=== PATIENT | male | born 1995 | race African-American/Black ===

== ENCOUNTER 2024-06-07 11:35 | Inpatient (IN) | payer MEDICAID ==
[~2024-06-07] VITALS: Ht 175.3 cm; Wt 73.5 kg
[2024-06-07] MEDS: LORazepam 2 MG/ML VIAL IM ONE (13:07)
[2024-06-07] MEDS: DiphenhydrAMINE HCL 50 MG/ML VIAL IM ONE (13:08)
[2024-06-07] MEDS: HALOPERIDOL LACTATE 5 MG/ML VIAL IM ONE (13:08)
[2024-06-07 13:36] LABS: BASOPHILS % (AUTO) 0.4 % (0.0-2.0); EOSINOPHILS % (AUTO) 0.8 % (1.0-6.0); HEMATOCRIT 42.9 % (41-53); HEMOGLOBIN 14.1 g/dL (13.5-17.5); LYMPHOCYTES # (AUTO) 1.3 K/uL (1.0-4.8); LYMPHOCYTES % (AUTO) 24.1 % (22.0-44.0); MEAN CORPUSCULAR HEMOGLOBIN 31.6 pg (26.0-34.0); MEAN CORPUSCULAR VOLUME 96 fL (80-100); MONOCYTES # (AUTO) 0.6 K/uL (0.1-1.0); MONOCYTES % (AUTO) 11.6 % (2.0-9.0); NEUTROPHILS # (AUTO) 3.4 K/uL (1.8-7.7); NEUTROPHILS % (AUTO) 63.1 % (40.0-70.0); PLATELET COUNT (AUTO) 338 K/uL (150-450); RED BLOOD CELL COUNT(AUTO) 4.48 MIL/uL (4.50-5.90); RED CELL DISTRIBUTION WIDTH 13.8 % (11.5-14.5); WHITE BLOOD COUNT (AUTO) 5.5 K/uL (4.5-11.0)
[2024-06-07 13:46] LABS: ANION GAP 7 mmol/L (8-16); CALCIUM, TOTAL 8.8 mg/dL (8.8-10.5); CARBON DIOXIDE 31 mmol/L (22-29); CHLORIDE 101 mmol/L (98-107); CREATININE 0.98 mg/dL (0.60-1.30); GLOMERULAR FILTR. RATE CALC > 60 mL/min (>60); GLUCOSE,RANDOM 117 mg/dL (70-110); POTASSIUM 3.8 mmol/L (3.5-5.1); SODIUM SERUM 139 mmol/L (136-145); UREA NITROGEN, BLOOD 15 mg/dL (7-18)
[2024-06-07 13:50] LABS: COVID AG,FIA SOURCE NASAL SWAB
[2024-06-07 13:50] LABS: ALBUMIN 3.5 g/dL (3.4-5.0); BILIRUBIN,DIRECT 0.1 mg/dL (0.00-0.20); BILIRUBIN,TOTAL 0.4 mg/dL (0.1-1.0); TOTAL PROTEIN, SERUM 6.9 g/dL (6.4-8.2)
[2024-06-07 14:10] LABS: ALCOHOL, BLOOD (SERUM) < 3 mg/dL (0-10)
[2024-06-07 14:19] LABS: SARS-COV2 (COVID) ANTIGEN,FIA Negative (Negative)
[2024-06-07] MEDS ORDERED: ZOLPIDEM TARTRATE 10 MG TABLET PO PRN (22:15)
[2024-06-08] VITALS: O2SAT 99
[2024-06-08 03:03] VITALS: BP 129/69; PULSE 63; RESP 17; TEMP 97.9; O2SAT 98
[2024-06-08 03:51] VITALS: BP 129/69; PULSE 63; RESP 17; TEMP 97.9
[2024-06-08] MEDS ORDERED: LOPERAMIDE HCL 2 MG CAPSULE PO PRN (06:45)
[2024-06-08] MEDS ORDERED: IBUPROFEN 400 MG TABLET PO PRN (06:45)
[2024-06-08] MEDS ORDERED: MAG HYDROX/ALUMINUM HYD/SIMETH ES 30 ML SUSPENSION UDCUP PO PRN (06:45)
[2024-06-08] MEDS ORDERED: ALBUTEROL SULFATE HFA 90 MCG/PUFF 8 GM INHALER IH PRN (06:45)
[2024-06-08] MEDS ORDERED: ACETAMINOPHEN 325 MG TABLET PO PRN (06:45)
[2024-06-08] MEDS ORDERED: CloNIDine HCL 0.1 MG TABLET PO PRN (06:45)
[2024-06-08] MEDS ORDERED: GuaiFENesin/D-METHORPHAN [SUGAR-FREE] 200-20MG/10 ML SYRUP UDCUP PO PRN (06:45)
[2024-06-08] MEDS ORDERED: MAGNESIUM HYDROXIDE SUSPENSION 30 ML UDCUP PO PRN (06:45)
[2024-06-08] MEDS ORDERED: PETROLATUM,WHITE 28 GM JELLY TP PRN (06:45)
[2024-06-08] MEDS ORDERED: ONDANSETRON 4 MG TABLET PO PRN (06:45)
[2024-06-08] MEDS ORDERED: NICOTINE 14 MG/24 HOUR PATCH TD PRN (06:45)
[2024-06-08] MEDS ORDERED: DOCUSATE SODIUM 100 MG CAPSULE PO PRN (06:45)
[2024-06-08 09:32] VITALS: BP 121/67; PULSE 89; RESP 17; TEMP 97.3; O2SAT 98
[2024-06-08] MEDS: HALOPERIDOL 5 MG TABLET PO PRN (16:54)
[2024-06-08] MEDS: LORazepam 2 MG TABLET PO PRN (16:54)
[2024-06-08 20:17] VITALS: BP 116/69; PULSE 80; RESP 17; TEMP 98.1; O2SAT 99
[2024-06-09 09:01] LABS: HEMOGLOBIN A1C 5.7 % (3.8-5.6)
[2024-06-09 09:19] LABS: CHOL/HDL RATIO 2.1 (4.2-7.3); THYROID STIMULATING HORMONE 1.57 uIU/mL (0.36-3.74)
[2024-06-09 10:08] VITALS: BP 120/87; PULSE 87; RESP 18; TEMP 97.5; O2SAT 100
[2024-06-09 20:50] VITALS: BP 144/68; PULSE 73; RESP 18; TEMP 97.5; O2SAT 97
[2024-06-10] MEDS: OLANZapine 5 MG RAPDIS TABLET PO ONE (12:14)
[2024-06-10] MEDS: OLANZapine 5 MG TABLET PO SCH (16:10)
[2024-06-11 08:44] VITALS: BP 133/89; PULSE 97; RESP 17; TEMP 97.3; O2SAT 98
[2024-06-11 20:05] VITALS: RESP 18
[2024-06-12 08:48] VITALS: BP 150/98; PULSE 101; RESP 18; TEMP 97.3; O2SAT 98
[2024-06-12 20:40] VITALS: BP 113/63; PULSE 82; RESP 18; TEMP 98.4; O2SAT 99
[2024-06-13 08:35] VITALS: BP 119/63; PULSE 96; RESP 17; TEMP 97.9; O2SAT 97
[2024-06-13] MEDS ORDERED: OLAN5TAB52 PO (11:51)
== END 2024-06-13 15:35 | disposition home or self-care (01) | DRG 751 ==
LOC: EMS 11:57 → B3A 06-08 00:58 → EDBD 06-08 00:58
PROVIDERS: ADMIT Psychiatry & Neurology Child & Adolescent Psychiatry; ATTEND Psychiatry & Neurology Child & Adolescent Psychiatry
PROC: GZ52ZZZ Individual Psychotherapy, Cognitive (ICD-10-PCS; principal; 2024-06-08)
PROC: GZ56ZZZ Individual Psychotherapy, Supportive (ICD-10-PCS; 2024-06-08)
DX: F29 Unspecified psychosis not due to a substance or known physiological condition (principal); E78.5 Hyperlipidemia, unspecified; Z20.822 Contact with and (suspected) exposure to COVID-19; F20.9 Schizophrenia, unspecified; R73.9 Hyperglycemia, unspecified; F11.20 Opioid dependence, uncomplicated; G47.00 Insomnia, unspecified
CPT/HCPCS: 80048; 80061; 80076; 83036; 84443; 85025; G0480; J1200; J1630; J2060

== ENCOUNTER 2024-06-21 22:00 | Emergency (ER) | payer MEDICAID ==
[~2024-06-21] VITALS: Ht 172.7 cm; Wt 68.2 kg
[~2024-06-21 22:00] MED LIST: OLAN5TAB52 PO
[2024-06-21 22:10] VITALS: TEMP 98.7
[2024-06-21 22:23] LABS: COVID AG,FIA SOURCE NASAL SWAB
[2024-06-21 22:26] LABS: SARS-COV2 (COVID) ANTIGEN,FIA Negative (Negative)
[2024-06-21 22:37] LABS: BASOPHILS % (AUTO) 0.4 % (0.0-2.0); EOSINOPHILS % (AUTO) 0.4 % (1.0-6.0); HEMATOCRIT 38.6 % (41-53); HEMOGLOBIN 12.9 g/dL (13.5-17.5); LYMPHOCYTES # (AUTO) 1.1 K/uL (1.0-4.8); LYMPHOCYTES % (AUTO) 17.7 % (22.0-44.0); MEAN CORPUSCULAR HEMOGLOBIN 31.7 pg (26.0-34.0); MEAN CORPUSCULAR HGB CONC 33.4 G/dL (31.0-37.0); MEAN CORPUSCULAR VOLUME 95 fL (80-100); MONOCYTES # (AUTO) 0.8 K/uL (0.1-1.0); MONOCYTES % (AUTO) 13.6 % (2.0-9.0); NEUTROPHILS # (AUTO) 4.1 K/uL (1.8-7.7); NEUTROPHILS % (AUTO) 67.9 % (40.0-70.0); PLATELET COUNT (AUTO) 310 K/uL (150-450); RED BLOOD CELL COUNT(AUTO) 4.07 MIL/uL (4.50-5.90); RED CELL DISTRIBUTION WIDTH 13.4 % (11.5-14.5)
[2024-06-21 22:45] LABS: ANION GAP 5 mmol/L (8-16); CALCIUM, TOTAL 8.7 mg/dL (8.8-10.5); CARBON DIOXIDE 28 mmol/L (22-29); CHLORIDE 103 mmol/L (98-107); CREATININE 0.78 mg/dL (0.60-1.30); GLOMERULAR FILTR. RATE CALC > 60 mL/min (>60); GLUCOSE,RANDOM 83 mg/dL (70-110); POTASSIUM 4.1 mmol/L (3.5-5.1); SODIUM SERUM 136 mmol/L (136-145); UREA NITROGEN, BLOOD 19 mg/dL (7-18)
[2024-06-21 22:52] LABS: ALCOHOL, BLOOD (SERUM) < 3 mg/dL (0-10)
[2024-06-21 23:19] LABS: APPEARANCE,URINE CLEAR (CLEAR); BILIRUBIN,URINE NEGATIVE (NEGATIVE); COLOR,URINE YELLOW (YELLOW); GLUCOSE, URINE (UA) NEGATIVE (NEGATIVE); LEUKOCYTE ESTERASE ,URINE NEGATIVE (NEGATIVE); NITRATE,URINE NEGATIVE (NEGATIVE); OCCULT BLOOD,URINE NEGATIVE (NEGATIVE); PH,URINE 5.5 (5.0-8.0); PH,URINE DRUG SCREEN 5.5 (5.0-8.0); PROTEIN,URINE NEGATIVE (NEGATIVE); SPECIFIC GRAVITIY, URINE 1.031 (1.003-1.030); UROBILINOGEN,URINE <=1.0 mg/dL (<=1.0)
[2024-06-21 23:24] LABS: ALCOHOL, URINE DRUG SCREEN NEGATIVE (NEGATIVE); AMPHET/METH SCREEN,URINE POSITIVE (NEGATIVE); BARBITURATE SCREEN, URINE NEGATIVE (NEGATIVE); BENZODIAZEPINES SCREEN,URINE NEGATIVE (NEGATIVE); CANNABINOID SCREEN,URINE NEGATIVE (NEGATIVE); COCAINE SCREEN,URINE NEGATIVE (NEGATIVE); METHADONE SCREEN, URINE NEGATIVE (NEGATIVE); OPIATE SCREEN,URINE NEGATIVE (NEGATIVE); PHENCYCLIDINE SCREEN,URINE NEGATIVE (NEGATIVE)
[2024-06-21] MEDS: HALOPERIDOL LACTATE 5 MG/ML VIAL IM ONE (23:45)
[2024-06-21] MEDS: DiphenhydrAMINE HCL 50 MG/ML VIAL IM ONE (23:45)
[2024-06-21] MEDS: LORazepam 2 MG/ML VIAL IM ONE (23:45)
[2024-06-22 01:15] VITALS: BP 118/79; PULSE 68; RESP 16; O2SAT 98
== END 2024-06-22 02:56 | disposition admitted as inpatient to this hospital (09) ==
LOC: EMS 22:02
DX: F29 Unspecified psychosis not due to a substance or known physiological condition (principal); Z20.822 Contact with and (suspected) exposure to COVID-19
CPT/HCPCS: 99285; 87426; 80048; 85025; 36415; 80307; 81003; G0480; J1200; J1630; J2060

== ENCOUNTER 2024-06-22 03:13 | Inpatient (IN) | payer MEDICAID ==
[~2024-06-22] VITALS: Ht 175.3 cm; Wt 65.8 kg
[2024-06-22 04:52] VITALS: BP 135/73; PULSE 70; RESP 18; TEMP 97.4
[2024-06-22 04:53] VITALS: BP 135/73; PULSE 70; RESP 18; TEMP 97.4; O2SAT 96
[2024-06-22 08:20] VITALS: BP 129/94; PULSE 97; RESP 17; TEMP 97.7; O2SAT 98
[2024-06-22] MEDS ORDERED: HALOPERIDOL LACTATE 5 MG/ML VIAL ONE (11:44)
[2024-06-22] MEDS ORDERED: DiphenhydrAMINE HCL 50 MG/ML VIAL ONE (11:44)
[2024-06-22] MEDS ORDERED: LORazepam 2 MG/ML VIAL ONE (11:44)
[2024-06-22] MEDS: LORazepam 2 MG/ML VIAL IM ONE (12:08)
[2024-06-22] MEDS: HALOPERIDOL LACTATE 5 MG/ML VIAL IM ONE (12:08)
[2024-06-22] MEDS: DiphenhydrAMINE HCL 50 MG/ML VIAL IM ONE (12:08)
[2024-06-22] MEDS: OLANZapine 10 MG TABLET PO SCH (21:33)
[2024-06-22 21:59] VITALS: RESP 16
[2024-06-22] MEDS ORDERED: BACITRACIN 28 GM OINTMENT TP PRN (22:00)
[2024-06-22] MEDS ORDERED: LOPERAMIDE HCL 2 MG CAPSULE PO PRN (22:00)
[2024-06-22] MEDS ORDERED: ACETAMINOPHEN 325 MG TABLET PO PRN (22:00)
[2024-06-22] MEDS ORDERED: MAGNESIUM HYDROXIDE SUSPENSION 30 ML UDCUP PO PRN (22:00)
[2024-06-22] MEDS ORDERED: IBUPROFEN 600 MG TABLET PO PRN (22:00)
[2024-06-22] MEDS ORDERED: CloNIDine HCL 0.1 MG TABLET PO PRN (22:00)
[2024-06-22] MEDS ORDERED: PETROLATUM,WHITE 28 GM JELLY TP PRN (22:00)
[2024-06-22] MEDS ORDERED: BENZOCAINE/MENTHOL [CEPACOL] LOZENGE PO PRN (22:00)
[2024-06-22] MEDS ORDERED: DOCUSATE SODIUM 100 MG CAPSULE PO PRN (22:00)
[2024-06-22] MEDS ORDERED: MAG HYDROX/ALUMINUM HYD/SIMETH ES 30 ML SUSPENSION UDCUP PO PRN (22:00)
[2024-06-22] MEDS ORDERED: ALBUTEROL SULFATE HFA 90 MCG/PUFF 8 GM INHALER IH PRN (22:00)
[2024-06-22] MEDS ORDERED: ONDANSETRON 4 MG TABLET PO PRN (22:00)
[2024-06-22] MEDS ORDERED: OMEPRAZOLE 20 MG CAPSULE PO PRN (22:00)
[2024-06-23] MEDS: LORazepam 2 MG TABLET PO PRN (13:33)
[2024-06-24 08:52] VITALS: BP 125/60; PULSE 98; RESP 18; TEMP 97.5; O2SAT 95
[2024-06-24] MEDS ORDERED: DiphenhydrAMINE HCL 50 MG/ML VIAL ONE (10:01)
[2024-06-24] MEDS ORDERED: LORazepam 2 MG/ML VIAL ONE (10:01)
[2024-06-24] MEDS ORDERED: HALOPERIDOL LACTATE 5 MG/ML VIAL ONE (10:03)
[2024-06-24] MEDS: HALOPERIDOL LACTATE 5 MG/ML VIAL IM ONE (10:46)
[2024-06-24] MEDS: DiphenhydrAMINE HCL 50 MG/ML VIAL IM ONE (10:47)
[2024-06-24] MEDS: LORazepam 2 MG/ML VIAL IM ONE (10:47)
[2024-06-24 20:38] VITALS: BP 128/74; PULSE 88; RESP 17; TEMP 98.5; O2SAT 99
[2024-06-25] MEDS: HALOPERIDOL 5 MG TABLET PO PRN (08:02)
[2024-06-25 08:09] VITALS: BP 139/69; PULSE 76; RESP 17; TEMP 97.5; O2SAT 100
[2024-06-25 21:02] VITALS: BP 124/71; PULSE 65; RESP 16; TEMP 97.6; O2SAT 100
[2024-06-26 06:07] LABS: HEPATITIS C AB (EIA) Non Reactive (Non Reactive)
[2024-06-26 08:44] VITALS: BP 128/81; PULSE 66; RESP 18; TEMP 98; O2SAT 99
[2024-06-26] MEDS ORDERED: DiphenhydrAMINE HCL 50 MG/ML VIAL ONE (15:08)
[2024-06-26] MEDS ORDERED: LORazepam 2 MG/ML VIAL ONE (15:08)
[2024-06-26] MEDS: DiphenhydrAMINE HCL 50 MG/ML VIAL IM ONE (15:23)
[2024-06-26] MEDS: HALOPERIDOL LACTATE 5 MG/ML VIAL IM ONE (15:23)
[2024-06-26] MEDS: LORazepam 2 MG/ML VIAL IM ONE (15:24)
[2024-06-26 20:51] VITALS: RESP 17
[2024-06-27 08:31] VITALS: BP 132/80; PULSE 93; RESP 17; TEMP 97.3; O2SAT 100
[2024-06-27] MEDS ORDERED: LORazepam 2 MG/ML VIAL ONE (13:59)
[2024-06-27] MEDS ORDERED: DiphenhydrAMINE HCL 50 MG/ML VIAL ONE (14:00)
[2024-06-27] MEDS ORDERED: HALOPERIDOL LACTATE 5 MG/ML VIAL ONE (14:00)
[2024-06-27] MEDS: LORazepam 2 MG/ML VIAL IM ONE (14:51)
[2024-06-27] MEDS: DiphenhydrAMINE HCL 50 MG/ML VIAL IM ONE (14:52)
[2024-06-27] MEDS: HALOPERIDOL LACTATE 5 MG/ML VIAL IM ONE (14:52)
[2024-06-27 20:18] VITALS: RESP 16
[2024-06-28 08:48] VITALS: BP 119/67; PULSE 74; RESP 17; TEMP 97.5; O2SAT 99
[2024-06-28 20:16] VITALS: BP 127/60; PULSE 73; RESP 18; TEMP 97.4; O2SAT 98
[2024-06-28] MEDS: ZOLPIDEM TARTRATE 10 MG TABLET PO PRN (21:40)
[2024-06-29 09:23] VITALS: BP 134/79; PULSE 94; RESP 18; TEMP 97.8; O2SAT 100
== END 2024-06-29 15:00 | disposition home or self-care (01) | DRG 750 ==
LOC: B3A 03:53
PROVIDERS: ADMIT Psychiatry & Neurology Psychiatry; ATTEND Psychiatry & Neurology Psychiatry
PROC: GZHZZZZ Group Psychotherapy (ICD-10-PCS; principal; 2024-06-23)
PROC: GZ52ZZZ Individual Psychotherapy, Cognitive (ICD-10-PCS; 2024-06-23)
DX: F20.9 Schizophrenia, unspecified (principal); F15.10 Other stimulant abuse, uncomplicated; F41.9 Anxiety disorder, unspecified; G47.00 Insomnia, unspecified
CPT/HCPCS: 84460; 86803; 87081; 87340; J1200; J1630; J2060